=== PATIENT | male | born 1950 | race Caucasian/White ===

== ENCOUNTER → 2018-11-05 | Outpatient (CLI) | payer OTHER | LOC: NUC 06:37 | DX: Z01.810 Encounter for preprocedural cardiovascular examination (principal); E78.5 Hyperlipidemia, unspecified; I10 Essential (primary) hypertension; I73.9 Peripheral vascular disease, unspecified; Z87.891 Personal history of nicotine dependence; Z79.899 Other long term (current) drug therapy; Z88.2 Allergy status to sulfonamides ==

== ENCOUNTER → 2019-08-04 | Outpatient (CLI) | payer OTHER | LOC: SJCVCIMAG 09:43 | DX: R94.31 Abnormal electrocardiogram [ECG] [EKG] (principal); I45.2 Bifascicular block; R06.09 Other forms of dyspnea; I10 Essential (primary) hypertension; R60.9 Edema, unspecified; E78.00 Pure hypercholesterolemia, unspecified ==

== ENCOUNTER → 2020-08-17 | Outpatient (CLI) | payer OTHER | LOC: SJCVC 13:55 | PROVIDERS: ATTEND Internal Medicine Cardiovascular Disease | DX: R94.31 Abnormal electrocardiogram [ECG] [EKG] (principal); I45.2 Bifascicular block; I45.10 Unspecified right bundle-branch block; I11.9 Hypertensive heart disease without heart failure; R06.00 Dyspnea, unspecified; R60.9 Edema, unspecified; E78.00 Pure hypercholesterolemia, unspecified; M19.90 Unspecified osteoarthritis, unspecified site; E78.5 Hyperlipidemia, unspecified; E03.9 Hypothyroidism, unspecified; Z79.899 Other long term (current) drug therapy; Z79.84 Long term (current) use of oral hypoglycemic drugs; Z87.891 Personal history of nicotine dependence; Z72.89 Other problems related to lifestyle; Z88.2 Allergy status to sulfonamides ==